=== PATIENT | female | born 1955 | race Caucasian/White ===

== ENCOUNTER 2018-12-07 11:14 | Emergency (ER) | payer MEDICARE, OTHER ==
[~2018-12-07] VITALS: Ht 154.9 cm; Wt 49.9 kg
[2018-12-07] MEDS ORDERED: IBUP600 PO (12:20)
[2018-12-07] MEDS ORDERED: Norco 10-325 T1 EACH PO (12:21)
[2018-12-07] MEDS ORDERED: PROM25 (12:21)
[2018-12-07] MEDS ORDERED: MAGNESIUM400 MG PO (12:21)
[2018-12-07] MEDS ORDERED: GABA300 PO (12:21)
[2018-12-07] MEDS ORDERED: POTCHL10ER PO (12:22)
[2018-12-07] MEDS ORDERED: AMIT10 PO (12:22)
[2018-12-07] MEDS ORDERED: LEVSOD100 PO (12:22)
[2018-12-07] MEDS ORDERED: DIAZ5 PO (12:22)
[2018-12-07] MEDS ORDERED: TIOT18 INH (12:22)
[2018-12-07] MEDS ORDERED: MIGRANOW KIT50 MG (12:23)
[2018-12-07] MEDS ORDERED: Monodox100 MG PO (13:05)
[2018-12-07] MEDS ORDERED: ALBU90OI INH (13:06)
== END 2018-12-07 13:11 | disposition home or self-care (01) ==
LOC: ER 11:14
DX: J18.9 Pneumonia, unspecified organism (principal); J44.9 Chronic obstructive pulmonary disease, unspecified; M79.7 Fibromyalgia; G90.50 Complex regional pain syndrome I, unspecified; Z79.899 Other long term (current) drug therapy; Z87.891 Personal history of nicotine dependence
CPT/HCPCS: 71046; 99283-25